=== PATIENT | male | born 1970 | race Caucasian/White ===

== ENCOUNTER 2019-02-22 08:11 | Observation (INO) | payer OTHER ==
[~2019-02-22 08:11] MED LIST: POLYMYXIN/BACITRACIN 1L IRRIG
[2019-02-22] MEDS ORDERED: CEFAZOLIN 2 GM/50 ML (PMX) 50 ML IVPB (08:30)
[2019-02-22] MEDS: LACTATED RINGER'S 1,000 ML (ENTER RATE) IV* (09:20)
[2019-02-22] MEDS ORDERED: AL HYDROX/MG HYDROX/SIMETH 30 ML CUP PO (12:30)
[2019-02-22] MEDS ORDERED: ACETAMINOPHEN 325 MG TAB PO (12:30)
[2019-02-22] MEDS ORDERED: HYDROCODONE/APAP (10/325) TAB PO (12:30)
[2019-02-22] MEDS ORDERED: DIPHENHYDRAMINE 25 MG CAP PO (12:30)
[2019-02-22] MEDS ORDERED: HYDROmorphONE 1 MG/5 ML IV SYRINGE IV ×3 (12:30)
[2019-02-22] MEDS ORDERED: LABETALOL HCL 20MG INJ IV (12:30)
[2019-02-22] MEDS ORDERED: FENTAnyl 50 MCG/ML VIAL IV ×3 (12:30)
[2019-02-22] MEDS ORDERED: BISACODYL 10 MG SUPP PR (12:30)
[2019-02-22] MEDS ORDERED: hydrALAzine 20 MG INJ IV (12:30)
[2019-02-22] MEDS ORDERED: CEPASTAT LOZENGE MT (12:30)
[2019-02-22] MEDS ORDERED: HYDROmorphONE 0.5 MG/0.5 ML SYG IV (12:30)
[2019-02-22] MEDS ORDERED: CYCLOBENZAPRINE 10 MG TAB PO (12:30)
[2019-02-22] MEDS ORDERED: OXYCODONE/ACETAMINOPHEN (5/325) TAB PO (12:30)
[2019-02-22] MEDS ORDERED: ONDANSETRON 4 MG INJ IV (12:30)
[2019-02-22] MEDS ORDERED: PROCHLORPERAZINE 10 MG INJ IV (12:30)
[2019-02-22] MEDS ORDERED: DIPHENHYDRAMINE 50 MG INJ IV (12:30)
[2019-02-22] MEDS ORDERED: EPHEDrine SULFATE 50 MG/5 ML SYG IV (12:30)
[2019-02-22] MEDS ORDERED: NALOXONE (0.4 MG/ML) INJ IV (12:30)
[2019-02-22] MEDS ORDERED: ROCURONIUM 50 MG INJ (12:34)
[2019-02-22] MEDS ORDERED: PROPOFOL 20 ML (12:34)
[2019-02-22] MEDS ORDERED: SUCCINYLCHOLINE CHLORIDE 100 MG/5 ML SYG IV ×2 (12:34→12:43)
[2019-02-22] MEDS ORDERED: MIDAZOLAM 1 MG/ML 2 ML INJ (12:34)
[2019-02-22] MEDS ORDERED: LIDOCAINE 2% (SDV) 5 ML INJ (12:34)
[2019-02-22] MEDS ORDERED: FENTAnyl 50 MCG/ML VIAL (12:34)
[2019-02-22] MEDS ORDERED: CEFAZOLIN 1 GM INJ (12:49)
[2019-02-22] MEDS: BUPIVACAINE 0.5%/EPI (SDV) 30 ML INJ (12:58)
[2019-02-22] MEDS ORDERED: ONDANSETRON 4 MG INJ (13:09)
[2019-02-22] MEDS ORDERED: DEXAMETHASONE 4 MG/ML 5 ML INJ (13:09)
[2019-02-22] MEDS ORDERED: FAMOTIDINE 20 MG INJ (13:10)
[2019-02-22] MEDS: SURGIFOAM POWDER 1 GM KIT (13:28)
[2019-02-22] MEDS: THROMBIN (BOVINE) 5,000 UNIT VIAL TP (13:28)
[2019-02-22] MEDS: CA CHLORIDE 10% 10 ML SYRINGE (13:29)
[2019-02-22] MEDS: HEPARIN 1000 UNITS/ML 10 ML INJ (13:29)
[2019-02-22] MEDS: POLYMYXIN/BACITRACIN 1L IRRIG IRR (13:29)
[2019-02-22] MEDS: BUPIVACAINE 0.25% (MPF) 30 ML INJ (13:49)
[2019-02-22] MEDS ORDERED: HYDROmorphONE 2 MG/ML SYG (14:19)
[2019-02-22] MEDS ORDERED: NEOSTIGMINE 3 MG/3 ML SYRINGE (14:27)
[2019-02-22] MEDS ORDERED: GLYCOPYRROLATE 0.4 MG INJ (14:27)
[2019-02-22] MEDS ORDERED: SUGAMMADEX SODIUM 200 MG/2 ML VIAL IV (14:31)
[2019-02-22] MEDS: ONDANSETRON 4 MG INJ IV (15:03)
[2019-02-22] MEDS: DIPHENHYDRAMINE 50 MG INJ IV (15:03)
[2019-02-22] MEDS: MEPERIDINE 25 MG INJ IV (15:08)
[2019-02-22] MEDS: CEFAZOLIN 1 GM/50 ML (PMX) 50 ML IVPB ×2 (15:26→23:19)
[2019-02-22] MEDS: D5W-0.45 NACL + KCL 20 MEQ 1,000 ML IV (16:21)
[2019-02-22] MEDS: DOCUSATE SODIUM 100 MG CAP PO (20:48)
[2019-02-23] MEDS: D5W-0.45 NACL + KCL 20 MEQ 1,000 ML IV (02:01)
[2019-02-23 05:24] LABS: ADD MAN DIFF? NO
[2019-02-23 05:40] LABS: WHITE BLOOD COUNT 12.1 10^3/ul (4.8-10.8)
[2019-02-23 05:40] LABS: BASOPHILS % 0.1 % (0.0-2.0); HEMATOCRIT 39.5 % (42.0-52.0); HEMOGLOBIN 13.8 g/dl (14.0-18.0); LYMPHOCYTES # 0.7 10^3/ul (0.8-2.9); LYMPHOCYTES % 6.1 % (15.0-51.0); MEAN CORPUSCULAR HEMOGLOBIN 30.4 pg (29.0-33.0); MEAN CORPUSCULAR HGB CONC 34.9 g/dl (32.0-37.0); MONOCYTE # 0.8 10^3/ul (0.3-0.9); MONOCYTES % 6.6 % (0.0-11.0); NEUTROPHIL # 10.6 10^3/ul (1.6-7.5); PLATELET COUNT 159 10^3/UL (140-415); RED BLOOD COUNT 4.54 10^6/ul (4.70-6.10)
[2019-02-23 06:30] LABS: ANION GAP 7 (5-13); BLOOD UREA NITROGEN 13 mg/dl (7-20); CALCIUM 9.1 mg/dl (8.4-10.2); CARBON DIOXIDE 27 mmol/L (21-31); CHLORIDE 104 mmol/L (97-110); CREATININE 0.99 mg/dl (0.61-1.24); Estimated GFR > 60 mL/min (>60); GLUCOSE 156 mg/dl (70-220); MAGNESIUM 1.9 mg/dl (1.7-2.5); POTASSIUM 4.3 mmol/L (3.5-5.1); SODIUM 138 mmol/L (135-144)
[2019-02-23] MEDS: DOCUSATE SODIUM 100 MG CAP PO (09:14)
[2019-02-23] MEDS: CEFAZOLIN 1 GM/50 ML (PMX) 50 ML IVPB (09:14)
[2019-02-23] MEDS: HYDROCODONE/APAP (10/325) TAB PO (10:45)
== END 2019-02-23 14:05 | disposition home or self-care (01) ==
LOC: SDS 08:11 → REC 12:06 → MS1 16:15
DX: M51.17 Intervertebral disc disorders with radiculopathy, lumbosacral region (principal); R53.1 Weakness
CPT/HCPCS: 63030; 72020; 80048; 83735; 85025; 86999; 88304; 97116; 97162; 97530; 99217